=== PATIENT | female | born 1985 | race Caucasian/White ===

== ENCOUNTER 2017-05-27 09:35 | Emergency (ER) | payer MEDICAID ==
[~2017-05-27] VITALS: Ht 151.1 cm; Wt 66.4 kg
[2017-05-27 09:47] VITALS: BP 153/84
--- NOTE | 2017-05-27 09:58 | NUR ---
Patient ambulated to bed 4. RN evaluating patient at bedside.
--- NOTE | 2017-05-27 10:01 | NUR ---
PATIENT PRESENTS TO ED WITH 32F BIB FAMILY C/O DIZZINESS X 4 DAYS WITH LEFT ARM PAIN X TODAY. HX: DM; DENIES N/V/D; SKIN IS PINK/WARM/DRY; AAOX4 WITH EVEN AND STEADY GAIT; LUNGS CLEAR BL; HR EVEN AND REGULAR; PT DENIES ANY FEVER, CP, SOB, OR COUGH AT THIS TIME; PATIENT STATES PAIN OF 7/10 AT THIS TIME; VSS; PATIENT POSITIONED FOR COMFORT; HOB ELEVATED; BEDRAILS UP X2; BED DOWN. ER MD MADE AWARE OF PT STATUS.
--- NOTE | 2017-05-27 10:30 | NUR ---
AAO PT BEING EVALUATED BY DR GAXIOLA AT BEDSIDE
[2017-05-27] MEDS ORDERED: KETOROLAC 60 MG/2 ML VIAL IM ONE (10:35)
[2017-05-27 11:03] VITALS: BP 122/62
== END 2017-05-27 11:03 | disposition home or self-care (01) ==
LOC: MED 09:35
DX: M79.602 Pain in left arm (principal); R42 Dizziness and giddiness; E11.9 Type 2 diabetes mellitus without complications; Z90.49 Acquired absence of other specified parts of digestive tract
CPT/HCPCS: 81002; 81025; 82948; 96372; 99283; J1885

== ENCOUNTER 2019-10-16 08:14 | Emergency (ER) | payer MEDICAID ==
[~2019-10-16] VITALS: Ht 157.5 cm; Wt 67.8 kg
--- NOTE | 2019-10-16 08:14 | NUR ---
pt wil bls to er bed 07
[2019-10-16 08:22] VITALS: BP 154/86
[2019-10-16] MEDS ORDERED: KETOROLAC 60 MG/2 ML VIAL IM ONE (08:40)
--- NOTE | 2019-10-16 08:40 | NUR ---
DR GAXIOLA MADE AWARE PT UNABLE TO VOID DUE TO 10/10 NECK [address] HEAD PAIN. DR GAXIOLA WILL PUT IN ORDER OF TORADOL 60MG.
--- NOTE | 2019-10-16 09:20 | NUR ---
SEAMUSR, PT 8/10 PAIN.
--- NOTE | 2019-10-16 09:32 | NUR ---
PT WHEELCHAIRED TO RESTROOM BY ZEINAB MIX
--- NOTE | 2019-10-16 10:14 | NUR ---
DR. GAXIOLA AT BEDSIDE.
[2019-10-16] MEDS ORDERED: MORPHINE SULFATE 4 MG/ML SYR IM ONE (10:15)
--- NOTE | 2019-10-16 11:38 | NUR ---
PT REPORTS 03/30 CP, DR. GAXIOLA NOTIFIED AND VERBALIZED "I DONT CARE."
--- NOTE | 2019-10-16 11:49 | NUR ---
Patient discharged with v/s stable. Written and verbal after care instructions given and explained. Patient alert, oriented and verbalized understanding of instructions. Ambulatory with steady gait. All questions addressed prior to discharge. ID band removed. Patient advised to follow up with PMD. Rx of NORCO AND MOTRIN given. Patient educated on indication of medication including possible reaction and side effects. Opportunity to ask questions provided and answered. PTS WILL BE DRIVING HER HOME. PT INSTRUCTED NOT TO DRIVE WHEN TAKING NORCO.
[2019-10-16 11:55] VITALS: BP 137/75
--- NOTE | 2019-10-16 12:02 | NUR ---
PT REQUESTING NECK BRACE, DR GAXIOLA NOTIFIED AND VERBAL ORDER FOR CERVICAL SOFT COLLAR PLACED BY TODD ( EMT)
== END 2019-10-16 11:49 | disposition home or self-care (01) ==
LOC: MED 08:14
DX: M54.2 Cervicalgia (principal); R51 Headache; M79.10 Myalgia, unspecified site; E11.9 Type 2 diabetes mellitus without complications; Z90.49 Acquired absence of other specified parts of digestive tract
CPT/HCPCS: 81002; 81025; 96372; 99283; J1885; J2270

== ENCOUNTER 2022-01-05 20:50 | Emergency (ER) | payer MEDICAID ==
[~2022-01-05] VITALS: Ht 147.3 cm; Wt 70.8 kg
[2022-01-05 20:58] VITALS: BP 150/90
--- NOTE | 2022-01-05 21:04 | NUR ---
patient to bed 10
--- NOTE | 2022-01-05 21:06 | NUR ---
Dr. Zhou examining patient.
[2022-01-05] MEDS ORDERED: ONDANSETRON 4 MG/2 ML VIAL IVP ONE (21:15)
[2022-01-05] MEDS ORDERED: MORPHINE SULFATE 4 MG/ML SYR IVP ONE (21:15)
[2022-01-05] MEDS ORDERED: lisinopriL 20 MG TAB PO ONE (21:45)
[2022-01-05] MEDS ORDERED: MORPHINE SULFATE 4 MG/ML SYR IM ONE (21:45)
[2022-01-05] MEDS ORDERED: ONDANSETRON 4 MG/2 ML VIAL IM ONE (21:45)
[2022-01-05 22:25] LABS: BASOPHILS # (AUTO) 0.1 K/uL (0.00-0.22); EOSINOPHILS # (AUTO) 0.1 K/uL (0-0.4); EOSINOPHILS % (AUTO) 1.4 % (0.0-4.0); HEMATOCRIT 37.8 % (36-48); HEMOGLOBIN 13.1 g/dL (12.0-16.0); LYMPHOCYTES # (AUTO) 3.4 K/uL (2.5-16.5); LYMPHOCYTES % (AUTO) 32.9 % (20.5-51.1); MEAN CORPUSCULAR HEMOGLOBIN 30 pg (27-31); MEAN CORPUSCULAR HGB CONC 35 g/dL (33-37); MEAN CORPUSCULAR VOLUME 85.2 fL (80-94); MONOCYTES # (AUTO) 0.7 K/uL (0.8-1.0); MONOCYTES % (AUTO) 6.4 % (1.7-9.3); NEUTROPHILS % (AUTO) 58.3 % (42.2-75.2); PLATELET COUNT (AUTO) 232 K/uL (140-450); RED BLOOD CELL COUNT(AUTO) 4.44 MIL/uL (4.20-5.40); RED CELL DISTRIBUTION WIDTH 12.9 % (11.6-13.7); WHITE BLOOD COUNT (AUTO) 10.2 K/uL (4.8-10.8)
[2022-01-05 22:49] LABS: ALBUMIN 3.5 g/dL (3.4-5.0); ANION GAP 14.1 (8-16); CARBON DIOXIDE 23.6 mmol/L (21-32); CREATININE 0.7 mg/dL (0.6-1.3); POTASSIUM 3.7 mmol/L (3.5-5.1); TOTAL BILIRUBIN 0.3 mg/dL (0.0-1.0)
[2022-01-05 22:58] LABS: APPEARANCE,URINE CLEAR (CLEAR); BILIRUBIN,URINE NEGATIVE (NEGATIVE); BLOOD, URINE TRACE-L (NEGATIVE); COLOR,URINE YELLOW (YELLOW); LEUKOCYTE ESTERASE ,URINE NEGATIVE (NEGATIVE); NITRITE, URINE NEGATIVE (NEGATIVE); UGLUCOSE 3+ (NEGATIVE)
--- NOTE | 2022-01-05 23:09 | NUR ---
PT REPORTS HEADACHE IS IMPROVING TO 8/10, DENIES ONGOING NAUSEA, DENIES ONGOING ARM OR FACE SYMPTOMS. VSS.
[2022-01-05 23:12] LABS: RBC,URINE 0-5 /HPF (0-5); WBC,URINE 0-5 /HPF (0-5)
[2022-01-05] MEDS ORDERED: LISI20TA29 PO (23:23)
[2022-01-05 23:29] VITALS: BP 133/56
--- NOTE | 2022-01-05 23:29 | NUR ---
Patient discharged with v/s stable. Written and verbal after care instructions given and explained. Patient alert, oriented and verbalized understanding of instructions. Ambulatory with steady gait. All questions addressed prior to discharge. ID band removed. Patient advised to follow up with PMD. Rx of LISINOPRIL given. Patient educated on indication of medication including possible reaction and side effects. Opportunity to ask questions provided and answered. PT DISCHARGE DONE BY AMANDA VILLA.
== END 2022-01-05 23:29 | disposition home or self-care (01) ==
LOC: MED 20:50
DX: R51.9 Headache, unspecified (principal); I10 Essential (primary) hypertension; R11.0 Nausea; E11.9 Type 2 diabetes mellitus without complications; F17.210 Nicotine dependence, cigarettes, uncomplicated; Z79.899 Other long term (current) drug therapy; Z98.890 Other specified postprocedural states
CPT/HCPCS: 36415; 80053; 81001; 81025; 85025; 87086; 96372; 99284; J2270; J2405

== ENCOUNTER 2023-02-14 13:40 | Emergency (ER) | payer MEDICAID ==
[~2023-02-14] VITALS: Ht 160 cm; Wt 70.3 kg
[~2023-02-14 13:40] MED LIST: LISI20TA29 PO
[2023-02-14 14:01] VITALS: BP 144/84
[2023-02-14] MEDS ORDERED: KETOROLAC 30 MG/ML VIAL IM ONE (14:10)
[2023-02-14] MEDS ORDERED: CEPH-588 PO (14:11)
[2023-02-14] MEDS ORDERED: NAPR-1704 PO (14:11)
--- NOTE | 2023-02-14 14:11 | NUR ---
patient ambulated to chair A without assitance
--- NOTE | 2023-02-14 14:53 | NUR ---
Patient discharged with v/s stable. Written and verbal after care instructions given and explained. Patient alert, oriented and verbalized understanding of instructions. Ambulatory with steady gait. All questions addressed prior to discharge. ID band removed. Patient advised to follow up with PMD. Rx of keflex, naproxen given. Patient educated on indication of medication including possible reaction and side effects. Opportunity to ask questions provided and answered.
== END 2023-02-14 14:51 | disposition home or self-care (01) ==
LOC: MED 13:40
DX: L60.0 Ingrowing nail (principal); L08.89 Other specified local infections of the skin and subcutaneous tissue; E11.9 Type 2 diabetes mellitus without complications; I10 Essential (primary) hypertension; Z90.49 Acquired absence of other specified parts of digestive tract; Z79.899 Other long term (current) drug therapy; Z79.1 Long term (current) use of non-steroidal anti-inflammatories (NSAID); Z79.2 Long term (current) use of antibiotics
CPT/HCPCS: 96372; 99283; J1885

== ENCOUNTER 2023-04-23 09:52 | Emergency (ER) | payer MEDICAID ==
[~2023-04-23] VITALS: Ht 152.4 cm; Wt 70.1 kg
[~2023-04-23 09:52] MED LIST changes: +CEPH-588 PO; +NAPR-1704 PO
[2023-04-23 09:54] VITALS: BP 134/80; PULSE 80; RESP 20; TEMP 97.7; O2SAT 97
[2023-04-23] MEDS ORDERED: IBUPROFEN 600 MG TAB PO ONE (12:10)
--- NOTE | 2023-04-23 13:10 | NUR ---
SHORT LEG POSTERIOR SPLINT APPLIED WITH 2 JENNY WRAPS. + CMS. PT GIVEN CRUTCHES AND RETURNED SAFE DEMONSTRATION.
[2023-04-23] MEDS ORDERED: ACET-8905 PO (13:21)
[2023-04-23] MEDS ORDERED: IBUP-2213 PO (13:21)
[2023-04-23 13:29] VITALS: BP 111/67; PULSE 74; RESP 17; O2SAT 98
--- NOTE | 2023-04-23 13:30 | NUR ---
Patient discharged with v/s stable. Written and verbal after care instructions given and explained. Patient alert, oriented and verbalized understanding of instructions. Ambulatory with steady gait. All questions addressed prior to discharge. ID band removed. Patient advised to follow up with PMD. Rx of NORCO, MOTRIN given. Patient educated on indication of medication including possible reaction and side effects. Opportunity to ask questions provided and answered.
== END 2023-04-23 13:30 | disposition home or self-care (01) ==
LOC: MED 09:52
DX: S92.314A Nondisplaced fracture of first metatarsal bone, right foot, initial encounter for closed fracture (principal); E11.9 Type 2 diabetes mellitus without complications; I10 Essential (primary) hypertension; D64.9 Anemia, unspecified; Z79.899 Other long term (current) drug therapy; W10.8XXA Fall (on) (from) other stairs and steps, initial encounter; Y93.89 Activity, other specified; Y92.218 Other school as the place of occurrence of the external cause; Y99.8 Other external cause status
CPT/HCPCS: 29515; 73610; 73630; 81002; 81025; 99284

== ENCOUNTER 2024-06-21 14:12 | Emergency (ER) | payer MEDICAID, OTHER ==
[~2024-06-21] VITALS: Ht 152.4 cm; Wt 66.9 kg
[~2024-06-21 14:12] MED LIST changes: +ACET-8905 PO; +IBUP-2213 PO
[2024-06-21 14:31] VITALS: BP 146/82; PULSE 101; RESP 18; TEMP 97.7; O2SAT 99
[2024-06-21 17:29] LABS: BASOPHILS % (AUTO) 0.3 % (0.0-2.0); EOSINOPHILS # (AUTO) 0.1 K/uL (0-0.4); EOSINOPHILS % (AUTO) 1.1 % (0.0-4.0); HEMATOCRIT 44.7 % (36-48); HEMOGLOBIN 15.2 g/dL (12.0-16.0); LYMPHOCYTES # (AUTO) 1.3 K/uL (2.5-16.5); MEAN CORPUSCULAR HEMOGLOBIN 29 pg (27-31); MEAN CORPUSCULAR HGB CONC 34 g/dL (33-37); MEAN CORPUSCULAR VOLUME 84.4 fL (80-94); MONOCYTES # (AUTO) 0.3 K/uL (0.8-1.0); MONOCYTES % (AUTO) 3.1 % (1.7-9.3); NEUTROPHILS # (AUTO) 8.2 K/uL (1.8-7.7); NEUTROPHILS % (AUTO) 82.5 % (42.2-75.2); PLATELET COUNT (AUTO) 223 K/uL (140-450); RED CELL DISTRIBUTION WIDTH 13.8 % (11.6-13.7)
[2024-06-21 17:39] LABS: ANION GAP 12.6 (8-16); CALCIUM 8.9 mg/dL (8.5-10.1); CREATININE 0.6 mg/dL (0.6-1.3); POTASSIUM 3.6 mmol/L (3.5-5.1)
[2024-06-21 17:45] LABS: ALBUMIN 3.5 g/dL (3.4-5.0); BILIRUBIN,DIRECT 0.2 mg/dL (0.0-0.3); TOTAL BILIRUBIN 0.8 mg/dL (0.0-1.0); TOTAL PROTEIN, SERUM 7.2 g/dL (6.4-8.2)
[2024-06-21 18:14] LABS: BILIRUBIN,URINE NEGATIVE (NEGATIVE); BLOOD, URINE TRACE-I (NEGATIVE); COLOR,URINE YELLOW (YELLOW); LEUKOCYTE ESTERASE ,URINE NEGATIVE (NEGATIVE); NITRITE, URINE NEGATIVE (NEGATIVE); PROTEIN,URINE TRACE (NEGATIVE); UGLUCOSE 3+ (NEGATIVE); UROBILINOGEN,URINE 0.2 EU/dL (0.2 - 1)
[2024-06-21 18:15] LABS: APPEARANCE,URINE SLIGHTLY HAZY (CLEAR)
[2024-06-21 18:18] LABS: BACTERIA,URINE 1+ /HPF (None Seen); MUCUS,URINE None Seen /LPF (None Seen); RBC,URINE 0 /HPF (0-5); SQUAMOUS EPITHELIAL CELL,UR 4-10 (MOD) /LPF (0-3 (FEW)); WBC,URINE 0-5 /HPF (0-5)
[2024-06-21] MEDS: ONDANSETRON 4 MG ODT PO ONE (18:32)
[2024-06-21] MEDS: KETOROLAC 30 MG/ML VIAL IM ONE (18:33)
[2024-06-21] MEDS ORDERED: ONDA-188 SL (18:58)
[2024-06-21] MEDS ORDERED: LOPE1TAB14 PO (18:58)
[2024-06-21] MEDS ORDERED: BEN10 PO (18:58)
[2024-06-21 19:09] VITALS: BP 123/68; PULSE 94; RESP 20; TEMP 100.1; O2SAT 97
== END 2024-06-21 19:09 | disposition home or self-care (01) ==
LOC: MED 14:12
DX: R11.0 Nausea (principal); R19.7 Diarrhea, unspecified; R10.12 Left upper quadrant pain; R03.0 Elevated blood-pressure reading, without diagnosis of hypertension; E11.9 Type 2 diabetes mellitus without complications; Z90.49 Acquired absence of other specified parts of digestive tract; Z79.899 Other long term (current) drug therapy
CPT/HCPCS: 36415; 80048; 80076; 81001; 81025; 82948; 83690; 85025; 96372; 99283; J1885; Q0162